=== PATIENT | female | born 1985 | race Caucasian/White ===

== ENCOUNTER 2016-02-26 02:32 | Emergency (ER) | payer OTHER ==
[2016-02-26] MEDS ORDERED: METOCLOPRAMIDE HCL 10 MG TABLET (FP) PO ONE ×2 (02:58→03:43)
--- NOTE | 2016-02-26 02:58 | PDOC ---
History of Present Illness <Rani Ortiz - Last Filed: 02/26/16 05:17> - General History Source: Patient Exam Limitations: No Limitations - History of Present Illness Initial Comments: 02/26/16 03:03 The patient is a 30 year old female with no pertinent PMH presented to the ED today complaining of a headache that began 4-5 hours ago. She reports the pain felt like a pressure on the left side of her head. The patient also noted recent lightheadedness over the past 2-3 days and discomforted in the right upper extremity. The patient notes she recently started taking control 1 month ago. NKDA Denies: fever, chills, abdominal pain, nausea, vomiting, diarrhea, dysuria PCP: None <Latoya Shah - Last Filed: 02/26/16 05:19> - General History Source: Patient <AbdielJose M judd - Last Filed: 02/26/16 05:21> - General Chief Complaint: Headache Stated Complaint: HEADACHE Time Seen by Provider: 02/26/16 02:42 Past History <Rani Ortiz - Last Filed: 02/26/16 05:17> <Latoya Shah - Last Filed: 02/26/16 05:19> - Psycho/Social/Smoking Cessation Hx Suicidal Ideation: No Smoking History: Never smoked Have you smoked in the past 12 months: No Information on smoking cessation initiated: No Hx Alcohol Use: No Drug/Substance Use Hx: No <Jose M Gracia - Last Filed: 02/26/16 05:21> - Past Medical History Allergies/Adverse Reactions: Allergies Allergy/AdvReac Type Severity Reaction Status Date / Time No Known Allergies Allergy Verified 02/26/16 02:47 Home Medications: Ambulatory Orders Acetaminophen/Caffeine/Butalb [Fioricet -] 1 tab PO Q6H #28 tablet MDD 4 Ibuprofen [Motrin] 600 mg PO TID #30 tablet 02/26/16 Metoclopramide HCl [Reglan] 10 mg PO TID #30 tablet 02/26/16 Review of Systems - Review of Systems Comments:: 02/26/16 03:05 CONSTITUTIONAL: Absent: fever, chills, diaphoresis, generalized weakness, malaise, loss of appetite HEENT: Absent: rhinorrhea, nasal congestion, throat pain, throat swelling, difficulty swallowing, mouth swelling, ear pain, eye pain, visual changes CARDIOVASCULAR: +Lightheadedness. Absent: chest pain, syncope, palpitations, irregular heart rate, peripheral edema RESPIRATORY: Absent: cough, shortness of breath, dyspnea with exertion, orthopnea, wheezing, stridor, hemoptysis GASTROINTESTINAL: Absent: abdominal pain, abdominal distension, nausea, vomiting, diarrhea, constipation, melena, hematochezia GENITOURINARY: Absent: dysuria, frequency, urgency, hesitancy, hematuria, flank pain, genital pain MUSCULOSKELETAL: +Right upper extremity pain Absent: joint swelling SKIN: Absent: rash, itching, pallor HEMATOLOGIC/IMMUNOLOGIC: Absent: easy bleeding, easy bruising, lymphadenopathy, frequent infections ENDOCRINE: Absent: unexplained weight gain, unexplained weight loss, heat intolerance, cold intolerance NEUROLOGIC: +Headache. Absent: focal weakness or paresthesias, unsteady gait, seizure, mental status changes, bladder or bowel incontinence PSYCHIATRIC: Absent: anxiety, depression, suicidal or homicidal ideation, hallucinations. <Latoya Shah - Last Filed: 02/26/16 05:19> *Physical Exam - Vital Signs Last Vital Signs Temp Pulse Resp BP Pulse Ox 98.9 F 94 H 20 148/93 97 02/26/16 02:47 02/26/16 02:47 02/26/16 02:47 02/26/16 02:47 02/26/16 02:47 <Rani Ortiz - Last Filed: 02/26/16 05:17> - Vital Signs Last Vital Signs Temp Pulse Resp BP Pulse Ox 98.9 F 94 H 20 148/93 97 02/26/16 02:47 02/26/16 02:47 02/26/16 02:47 02/26/16 02:47 02/26/16 02:47 - Physical Exam Comments: 02/26/16 03:09 GENERAL: Well-appearing, well-nourished. No apparent distress. HEENT: Normocephalic, atraumatic. PERRL, EOM intact. CARDIOVASCULAR: Normal S1, S2. Regular rate and rhythm. PULMONARY: Clear to auscultation bilaterally. ABDOMEN: Soft, non-distended, non-tender. EXTREMITIES: Normal ROM in all four extremities. No gross deformities. SKIN: Warm, dry. No rash NEUROLOGICAL: No focal neurological deficits <Latoya Shah - Last Filed: 02/26/16 05:19> - Vital Signs Last Vital Signs Temp Pulse Resp BP Pulse Ox 98.9 F 94 H 20 148/93 97 02/26/16 02:47 02/26/16 02:47 02/26/16 02:47 02/26/16 02:47 02/26/16 02:47 <Jose M Gracia - Last Filed: 02/26/16 05:21> ED Treatment Course - ADDITIONAL ORDERS Additional order review: Laboratory Results 02/26/16 03:36 Urine HCG, Qual Negative - RADIOLOGY Radiograph Interpretation: 02/26/16 05:17 EXAM: CT brain without contrast Reviewed by Imaging pig conveyor operator: FINDINGS: Normal brain. No acute intracranial abnormality. No bleed. No visible infarct or mass. - Medications Given in the ED: ED Medications Discontinued Medications Generic Name Dose Route Start Last Admin Trade Name Freq PRN Reason Stop Dose Admin Metoclopramide HCl 10 mg 02/26/16 02:58 02/26/16 03:45 Reglan - PO 02/26/16 02:59 10 mg ONCE ONE Administration <Rani Ortiz - Last Filed: 02/26/16 05:17> Medical Decision Making - Medical Decision Making 02/26/16 05:20 Dr. Gracia: The scribe's documentation has been prepared under my direction and personally reviewed by me in its entirery. I confirm that the note above accurately reflects all work, treatment, procedures, and medical decision making performed by me. <Jose M Gracia - Last Filed: 02/26/16 05:21> *DC/Admit/Observation/Transfer <Rani Ortiz - Last Filed: 02/26/16 05:17> - Attestations Scribe Attestion: 02/26/16 03:09 Documentation prepared by Latoya Shah, acting as medical collections representative for Jose M Gracia MD/DO. <Latoya Shah - Last Filed: 02/26/16 05:19> - Discharge Dispostion Admit: No <Jose M Gracia - Last Filed: 02/26/16 05:21> Diagnosis at time of Disposition: Headache Qualifiers: Headache type: other headache syndrome Qualified Code(s): G44.89 - Other headache syndrome - Discharge Dispostion Disposition: HOME Condition at time of disposition: Stable - Prescriptions Prescriptions: Acetaminophen/Caffeine/Butalb [Fioricet -] 1 tab PO Q6H #28 tablet MDD 4 Ibuprofen [Motrin] 600 mg PO TID #30 tablet Metoclopramide HCl [Reglan] 10 mg PO TID #30 tablet - Referrals Referrals: Aundrea Bang [Primary Care Provider] - Josee Avalos MD [Staff Physician] - - Patient Instructions Printed Discharge Instructions: DI for Headache
[2016-02-26 03:09] VITALS: TEMP 98.9; BMI 28.1
[2016-02-26 05:39] VITALS: BP 130/70; PULSE 66
== END 2016-02-26 05:39 | disposition home or self-care (01) ==
LOC: JER 02:32
DX: G44.89 Other headache syndrome (principal)
CPT/HCPCS: 70450-TC; 84703; 99281-25